=== PATIENT | female | born 2000 | race Caucasian/White ===

== ENCOUNTER → 2020-12-14 16:06 | Outpatient (BNVA) | payer SELFPAY | PROVIDERS: PCP Nurse Practitioner Family; Visit Provider Nurse Practitioner Family | DX: M25.532 Pain in left wrist (principal); M25.432 Effusion, left wrist | CPT/HCPCS: 73110 ==

== ENCOUNTER → 2024-10-28 13:39 | Outpatient (BNVA) | payer MEDICAID, SELFPAY | PROVIDERS: PCP Nurse Practitioner Family; Visit Provider Emergency Medicine | DX: R07.9 Chest pain, unspecified (principal); R05.9 Cough, unspecified | CPT/HCPCS: 71046 ==

== ENCOUNTER 2024-10-28 14:04 | Inpatient (IN) | payer MEDICAID, SELFPAY ==
[2024-10-28] VITALS (9 sets, daily range): BP systolic 110–133; BP diastolic 63–87; PULSE 71–113; RESP 17–20; TEMP 36.6–37.6; O2SAT 95–100; BMI 16.2; BMI 19.6
--- NOTE | 2024-10-28 14:07 | W.ED.SOB ---
HPI - SOB/Dyspnea General: Chief Complaint: Shortness of Breath/Dyspnea Stated Complaint: sob, sent from walk in [facility] lung Time Seen by Provider: 10/28/24 14:06 History of Present Illness: HPI Narrative: 24-year-old female presents emergency room from urgent care clinic she had an abnormal chest x-ray there was a concern that she had a pneumothorax. Patient states for about the last 3 weeks she has had increasing shortness of breath mild nonproductive cough. She is subjectively had a little low-grade fever. She denies any hemoptysis no history of any PE no history of any chronic respiratory illness no history of any previous spontaneous pneumothorax. Patient does not smoke or vape. Associated symptoms: Reports chest congestion and fever(s) (Subjective); Deny abdominal pain or chest pain Related Data Home Medications ?Medication ?Instructions ?Recorded ?Confirmed ibuprofen 200 mg tablet 600 mg PO Q6H PRN fever or pain 03/13/20 10/28/24 Previous Rx's ?Medication ?Instructions ?Recorded ondansetron 4 mg disintegrating 4 mg PO Q8H PRN nausea and 02/01/24 tablet vomiting #10 tabs Allergies Allergy/AdvReac Type Severity Reaction Status Date / Time No Known Allergies Allergy Verified 10/28/24 13:12 Review of Systems Const: Reports: fever(s) (Subjective); Denies: chills Card: Denies: chest pain Resp: Reports: dyspnea, productive cough, wheezing and chest congestion GI: Denies: abdominal pain : Denies: dysuria, urinary frequency or urinary urgency Musc: Denies: neck pain or back pain Skin/Breast: Denies: rash PFSH ED PFSH: Social History Smoking and tobacco/nicotine status: never used tobacco/nicotine Second hand smoke exposure: No Alcohol intake: never Substance/Drug Use: never Lives independently: Yes Household members: none Housing: House Marital status: Single Physical Exam Const: GENERAL APPEARANCE: cooperative ORIENTATION/CONSCIOUSNESS: Yes awake, Yes oriented to person, Yes oriented to place and Yes oriented to time HENMT: COMMON NORMALS: normocephalic, atraumatic and hearing grossly normal bilaterally HEAD & SCALP: normocephalic and atraumatic Resp: OTHER: Diminished breath sounds in the right lower lobe with egophony. Upper lobe sounds clear dullness to percussion. No subcutaneous emphysema. Cardio: COMMON NORMALS: regular rate, regular rhythm and No murmurs present (Cardio) RATE: regular rate RHYTHM: regular rhythm GI: COMMON NORMALS: Soft to palpation and No hepatosplenomegaly present AUSCULTATION: Yes normoactive bowel sounds PALPATION: Yes Soft to palpation, No Tenderness to palpation present (GI), No Guarding due to palpation present (GI) and Yes No hepatosplenomegaly present Extremity: COMMON NORMALS: normal to inspection, capillary refill normal, no clubbing, cyanosis or edema, no calf tenderness and no pedal edema Neuro: SENSORIUM/ORIENTATION: Yes oriented to person, Yes oriented to place and Yes oriented to time Skin: COMMON NORMALS: no rashes or lesions noted GENERAL SKIN EXAM: no rashes or lesions noted Course Vital Signs: Vital signs: Vital Signs Temperature 97.8 F 10/28/24 14:08 Pulse Rate 96 10/28/24 16:31 Respiratory Rate 18 10/28/24 14:28 Blood Pressure 133/78 10/28/24 16:31 Pulse Oximetry 99 10/28/24 16:31 Oxygen Delivery Me thod Room Air 10/28/24 16:31 MDM - SOB/Dyspnea Medical Decision Making Multilobar pneumonia with a small right pleural effusion. There is pretty significant right lower lobe pneumonia nearly completely consolidated there is no evidence of mucous plugging encouraging the radiologist that I spoke to about the case. No pulmonary emboli. Given the multilobar pneumonia extensive disease recommend observation started on ceftriaxone and Zithromax per the hospitalist orders have been written have discussed Dr. Keenan. Medical Records I reviewed the patient's medical records. Lab Data I reviewed the patient's lab results. 10/28/24 14:10 10/28/24 14:10 Labs/Radiology: Radiology Impressions Chest X-Ray 10/28/24 14:08 IMPRESSION: Near complete opacification of the right lower hemithorax with opacities in the right middle and lower lobes compatible with pneumonia again demonstrated. Mild right pleural fluid. Recommend follow-up evaluation following treatment to assess for resolution. Chest CTA 10/28/24 14:23 IMPRESSION: 1. Bilateral pulmonary opacities as detailed above, most extensive in the right middle and lower lobes and at the left lung base compatible with pneumonia and atelectasis. 2. Moderate right pleural effusion. 3. Mild right hilar adenopathy, likely reactive. 4. No acute pulmonary emboli. 5. Recommend follow-up evaluation following treatment to assess for resolution. ADDENDUM: 10/28/24 4651 THIS REPORT CONTAINS FINDINGS THAT MAY BE CRITICAL TO PATIENT CARE. The findings were verbally communicated via telephone conference at 4:05 PM CDT on 10/28/2024 with TIMOTHY BOWMAN. The findings were acknowledged and understood. Laboratory Results WBC 10.52 10^3/uL (3.29-11.43) 10/28/24 14:10 RBC 4.27 10^6/uL (3.85-5.65) 10/28/24 14:10 Hgb 12.40 g/dL (11.27-16.99) 10/28/24 14:10 Hct 38.4 % (36-47) 10/28/24 14:10 MCV 89.9 fl (85-98) 10/28/24 14:10 MCH 29.0 pg (27-33) 10/28/24 14:10 MCHC 32.3 g/dL (30-55) 10/28/24 14:10 RDW 13.2 % (12.1-15.1) 10/28/24 14:10 Plt Count 599 10^3/cmm (157-399) H 10/28/24 14:10 MPV 8.4 fL (7.4-10.4) 10/28/24 14:10 Neut % (Auto) 77.6 % 10/28/24 14:10 Lymph % (Auto) 13.4 % 10/28/24 14:10 [place] % (Auto) 6.8 % 10/28/24 14:10 Eos % (Auto) 0.9 % 10/28/24 14:10 Baso % (Auto) 0.7 % 10/28/24 14:10 Neut # (Auto) 8.17 10^3/uL (1.8-7.7) H 10/28/24 14:10 Lymph # (Auto) 1.4 10^3/uL (0.8-4.8) 10/28/24 14:10 [place] # (Auto) 0.7 10^3/uL (0.2-0.9) 10/28/24 14:10 Eos # (Auto) 0.1 10^3/uL (0.0-0.8) 10/28/24 14:10 Baso # (Auto) 0.1 10^3/uL (0.0-0.1) 10/28/24 14:10 Nucleated RBC % (auto) 0 % 10/28/24 14:10 Nucleated RBCs # 0.0 /100WBC 10/28/24 14:10 Sodium 140 mmol/L (136-145) 10/28/24 14:10 Potassium 4.1 mmol/L (3.5-5.1) 10/28/24 14:10 Chloride 101 mmol/L (98-107) 10/28/24 14:10 Carbon Dioxide 29 mmol/L (22-29) 10/28/24 14:10 Anion Gap 14.1 (5-19) 10/28/24 14:10 BUN 9 mg/dL (6-20) 10/28/24 14:10 Creatinine 0.5 mg/dL (0.5-0.9) 10/28/24 14:10 GFR Calculation 149.1 mL/min (90-130) H 10/28/24 14:10 Glucose 90 mg/dL (65-115) 10/28/24 14:10 Calculated Osmolality 288 mOsm/kg (285-295) 10/28/24 14:10 Lactic Acid 0.7 mmol/L (0.5-2.2) 10/28/24 14:10 Calcium 10.1 mg/dL (8.5-10.5) 10/28/24 14:10 Total Bilirubin 0.2 mg/dL (0.15-1.2) 10/28/24 14:10 AST 16 U/L (0-32) 10/28/24 14:10 ALT 20 U/L (0-33) 10/28/24 14:10 Alkaline Phosphatase 78 U/L (35-105) 10/28/24 14:10 Total Protein 7.9 g/dL (6.6-8.7) 10/28/24 14:10 Albumin 4.0 g/dL (3.5-5.2) 10/28/24 14:10 Globulin 3.9 g/dL (1.3-4.6) 10/28/24 14:10 Urine Color Yellow (Yellow) 10/28/24 15:47 Urine Appearance Clear (CLEAR) 10/28/24 15:47 Urine pH 7.0 (5-7) 10/28/24 15:47 Ur Specific [place] 1.027 (1.005-1.030) 10/28/24 15:47 Urine Protein Negative (Negative) 10/28/24 15:47 Urine Glucose (UA) Negative (Normal) 10/28/24 15:47 Urine Ketones Negative (Negative) 10/28/24 15:47 Urine Blood Negative (Negative) 10/28/24 15:47 Urine Nitrate Negative (Negative) 10/28/24 15:47 Urine Bilirubin Negative (Negative) 10/28/24 15:47 Urine Urobilinogen 0.2 mg/dL (Negative) 10/28/24 15:47 Ur Leukocyte Esterase Negative (Negative) 10/28/24 15:47 Urine RBC 0-2 /hpf (0-2) 10/28/24 15:47 Urine WBC 0-5 /hpf (0-5) 10/28/24 15:47 Ur Squamous Epith Cells 0-5 /hpf (0-5) 10/28/24 15:47 Amorphous Sediment Not Reportable 10/28/24 15:47 Urine Bacteria None seen /hpf (NONE) 10/28/24 15:47 Hyaline Casts 0-4 /lpf H 10/28/24 15:47 Influenza A (PCR) Negative (Negative) 10/28/24 14:45 Influenza Type B (PCR) Negative (Negative) 10/28/24 14:45 RSV (PCR) Negative (Negative) 10/28/24 14:45 SARS-CoV-2 (PCR) Negative (Negative) 10/28/24 14:45 All radiology interpretation(s) finalized by discharge Discharge Plan Discharge Patient Disposition: Placed in Observation Clinical Impression: Community acquired pneumonia Condition: Stable Prescriptions: No Action ibuprofen 200 mg tablet 600 mg PO Q6H PRN (Reason: fever or pain) ondansetron 4 mg tablet,disintegrating 4 mg PO Q8H PRN (Reason: nausea and vomiting) Qty: 10 0RF Referrals: Keshia Florez FNP-C [Primary Care Provider] - Print Language: Singaporean Coding Level of Care Code ED Child Care Education Coordinator for g Micky
--- NOTE | 2024-10-28 14:08 | XRR_ITS ---
PROCEDURE INFORMATION: Exam: XR Chest Exam date and time: 10/28/2024 2:14 PM Age: 24 years old Clinical indication: Cough and dyspnea; Additional info: Dyspnea/cough TECHNIQUE: Imaging protocol: Radiologic exam of the chest. Views: 1 view. COMPARISON: CR XR chest 2V* [id number] 10/28/2024 1:42 PM FINDINGS: Lungs: Near complete opacification of the right lower hemithorax with opacities in the right middle and lower lobes, not significantly changed. Left lung is clear. Pleural spaces: Mild pleural fluid on the right. No pneumothorax. Heart/Mediastinum: Cardiomediastinal silhouette is normal. Bones/joints: No acute abnormality. XR/XR chest 1V portable [id number] IMPRESSION: Near complete opacification of the right lower hemithorax with opacities in the right middle and lower lobes compatible with pneumonia again demonstrated. Mild right pleural fluid. Recommend follow-up evaluation following treatment to assess for resolution.
--- NOTE | 2024-10-28 14:12 | ECG_ITS ---
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
[2024-10-28 14:21] LABS: Basophils # 0.1 10^3/uL (0.0-0.1); Basophils % 0.7 %; Eosinophils # 0.1 10^3/uL (0.0-0.8); Eosinophils % 0.9 %; Hematocrit 38.4 % (36-47); Lymphocytes # 1.4 10^3/uL (0.8-4.8); Lymphocytes % 13.4 %; Mean Corpuscular HGB Conc 32.3 g/dL (30-55); Mean Corpuscular Volume 89.9 fl (85-98); Mean Platelet Volume 8.4 fL (7.4-10.4); Monocytes # 0.7 10^3/uL (0.2-0.9); Monocytes % 6.8 %; Neutrophils # 8.17 10^3/uL (1.8-7.7); Neutrophils % 77.6 %; Nucleated Red Blood Cells % 0 %; Platelet Count 599 10^3/cmm (157-399); Red Blood Count 4.27 10^6/uL (3.85-5.65); Red Cell Distribution Width 13.2 % (12.1-15.1); White Blood Count 10.52 10^3/uL (3.29-11.43)
--- NOTE | 2024-10-28 14:23 | CTR_ITS ---
PROCEDURE INFORMATION: Exam: CTA Chest With Contrast Exam date and time: 10/28/2024 3:02 PM Age: 24 years old Clinical indication: Pain; Cough and shortness of breath; Chest pressure; Additional info: Abnormal chest x-ray, consolidated right lower lobe pneumoni TECHNIQUE: Imaging protocol: Computed tomographic angiography of the chest with contrast. Exam focused on the arteries. 3D rendering (Not supervised by radiologist): MIP and/or 3D reconstructed images were created by the technologist. Radiation optimization: All CT scans at this facility use at least one of these dose optimization techniques: automated exposure control; mA and/or kV adjustment per patient size (includes targeted exams where dose is matched to clinical indication); or iterative reconstruction. Contrast material: OMNI 350; Contrast volume: 69 ml; Contrast route: INTRAVENOUS (IV); COMPARISON: CR XR chest 1V portable [id number] 10/28/2024 2:14 PM RADIATION DOSE METRICS: Total DLP (mGy-cm): 152.32 FINDINGS: Pulmonary arteries: No pulmonary artery embolism identified. Main pulmonary artery is normal caliber. Aorta: No aortic aneurysm. No aortic dissection or evidence of acute aortic abnormality. Lungs: Airspace consolidation and areas of ground-glass opacity in the right lower lobe. There is also RLL compressive and dependent atelectasis. Opacification of the right middle lobe with volume loss. Scattered areas of ground-glass opacity in the left upper lobe and lingula. Scattered areas of ground-glass opacity in the left lower lobe with patchy airspace opacities predominantly at the left lung base. Some of the opacities are somewhat nodular with no definite cavitation. Pleural spaces: Moderate right pleural effusion. No pneumothorax. Heart: Heart size is normal. No pericardial effusion. Lymph nodes: Few upper normal mediastinal lymph nodes and mildly enlarged right hilar lymph node measuring 1.4 cm in short axis dimension. Bones/joints: No acute osseous abnormality or suspicious osseous lesion. Manubriosternal joint sclerosis and endplate changes. Soft tissues: Unremarkable. Other findings: No acute abnormality in the included upper abdomen. CT/CT angio chest PE protcl [id number] IMPRESSION: 1. Bilateral pulmonary opacities as detailed above, most extensive in the right middle and lower lobes and at the left lung base compatible with pneumonia and atelectasis. 2. Moderate right pleural effusion. 3. Mild right hilar adenopathy, likely reactive. 4. No acute pulmonary emboli. 5. Recommend follow-up evaluation following treatment to assess for resolution.
[2024-10-28 14:38] LABS: Alanine Aminotransferase 20 U/L (0-33); Alkaline Phosphatase 78 U/L (35-105); Anion Gap 14.1 (5-19); Aspartate Amino Transferase 16 U/L (0-32); Blood Urea Nitrogen 9 mg/dL (6-20); Calcium 10.1 mg/dL (8.5-10.5); Carbon Dioxide 29 mmol/L (22-29); Chloride 101 mmol/L (98-107); Creatinine Clr Calc Pharmacy 126.9767; Globulin 3.9 g/dL (1.3-4.6); Glomerular Filtration Rate 149.1 mL/min (90-130); Glucose 90 mg/dL (65-115); Osmolality Calculated 288 mOsm/kg (285-295); Potassium 4.1 mmol/L (3.5-5.1); Sodium 140 mmol/L (136-145); Total Bilirubin 0.2 mg/dL (0.15-1.2); Total Protein 7.9 g/dL (6.6-8.7)
[2024-10-28 14:39] LABS: Lactic Sepsis W/Reflex 0.7 mmol/L (0.5-2.2)
[2024-10-28] MEDS: iohexol 350 mg/mL 500 mL Btl (per mL) IV (15:07)
[2024-10-28 15:41] LABS: Influenza A NEGATIVE (Negative); Influenza B NEGATIVE (Negative); Respiratory Syncytial Virus Ce NEGATIVE (Negative); SARS-CoV-2 PCR NEGATIVE (Negative)
[2024-10-28 15:54] LABS: Bilirubin Urine Negative (Negative); Blood Urine Negative (Negative); Glucose Urine UA Negative (Normal); Ketones Urine Negative (Negative); Leukocyte Esterase Urine Negative (Negative); Nitrate Urine Negative (Negative); Protein Urine Negative (Negative); Specific Gravity, Urine 1.027 (1.005-1.030); Urine Appearance Clear (CLEAR); Urine Color Yellow (Yellow); Urobilinogen Urine 0.2 mg/dL (Negative)
[2024-10-28 15:56] LABS: Add Urine Microscopic? YES; Bacteria Urine None Seen /hpf; Hyaline Casts Urine 0-4 /lpf; RBC Urine 0-2 /hpf (0-2); Squamous Epithelial Cell Urine 0-5 /hpf (0-5); WBC Urine 0-5 /hpf (0-5)
--- NOTE | 2024-10-28 17:11 | US_ITS ---
WS: [id number] Ultrasound chest, bilateral. HISTORY: Evaluate for pleural effusion. COMPARISON: Chest CT 10/28/2024. Small to moderate RIGHT pleural effusion. There is a small amount of atelectatic lung within the effusion. No significant LEFT pleural effusion identified by ultrasound. US/US chest [id number] IMPRESSION: Small to moderate RIGHT pleural effusion.
--- NOTE | 2024-10-28 17:13 | USCV_ITS ---
Leanna Carter Age: 24 Gender: F : 2000 Exam Date: 10/28/2024 17:33 Ordering Phys: Lito Keenan MD Technologist: DANNY [place] [facility] [place]: SOB BP: 115 / 65 HR: 82 Rhythm: Sinus Technical Quality: Adequate MEASUREMENTS (Male / Female) Normal Values 2D ECHO LV Diastolic Diameter PLAX 4.0 cm 4.2 - 5.9 / 3.9 - 5.3 cm IVS Diastolic Thickness 0.9 cm 0.6 - 1.0 / 0.6 - 0.9 cm IVS Systolic Thickness 1.0 cm LVPW Diastolic Thickness 0.8 cm 0.6 - 1.0 / 0.6 - 0.9 cm LVPW Systolic Thickness 1.8 cm LVOT Diameter 1.9 cm LV Ejection Fraction 2D Teich 67.6 % LV Ejection Fraction MOD 4C 74.7 % LV Ejection Fraction MOD 2C 53.3 % LV Ejection Fraction 2C AL 51.1 % LA Diameter 3.0 cm RA Systolic Volume 4C AL 16.1 ml RA Systolic Volume 4C MOD 15.8 ml LA Sys Volume AL 19.2 cm cubed LA Sys Volume Index AL 13.4 cm cubed/m squared Aorta at Sinotubular Diameter 1.9 cm IVC Diameter 1.4 cm M-MODE LA Ao Ratio MM 1.4 AV Cusp Separation MM 1.4 cm DOPPLER AV Peak Velocity 148.0 cm/s LVOT Peak Velocity 121.0 cm/s AV Area Cont Eq vti 2.8 cm squared AV Area Cont Eq pk 2.4 cm squared MV Peak Velocity 147.0 cm/s MV Area PHT 5.7 cm squared Mitral E to A Ratio 1.6 TR Peak Velocity 114.0 cm/s TR Peak Gradient 5.2 mmHg TV Peak E Velocity 98.0 cm/s PV Peak Velocity 127.0 cm/s FINDINGS Left Ventricle Normal left ventricular size, systolic function and wall thickness, with no regional wall motion abnormalities. Left ventricular ejection fraction is estimated at 60 %. Normal diastolic function. Right Ventricle The right ventricle is normal in size and function. Right Atrium The right atrium is normal in size. Left Atrium The left atrium is normal in size. Mitral Valve Structurally normal mitral valve without significant stenosis or prolapse. There is no mitral regurgitation. Aortic Valve Structurally normal aortic valve without significant sclerosis or stenosis. There is no aortic regurgitation. Tricuspid Valve Structurally normal tricuspid valve without significant stenosis or regurgitation. Pulmonary artery systolic pressure is normal. Pulmonic Valve Structurally normal pulmonic valve without significant stenosis. There is no pulmonic regurgitation. Pericardium Normal pericardium without effusion. Aorta Normal ascending aorta dimension. IVC The inferior vena cava appears normal. CONCLUSIONS Normal left ventricular size, systolic function and wall thickness, with no regional wall motion abnormalities. Left ventricular ejection fraction is estimated at 60 %. Normal diastolic function. There is no pericardial effusion. No significant valve abnormalities. Right atrial pressure is around 5 mm of mercury. Sergio Chow MD (Electronically Signed) Final Date: 29 October 2024 17:57 S
--- NOTE | 2024-10-28 17:15 | P.HP_ITS ---
Providers/Chief Complaint 2 Primary Care Provider: Keshia Florez, ROSELIA Chief Complaint: sob, sent from walk in [facility] lung History of Present Illness Leanna Carter is a 24 year old female with no significant past medical history, who presents to [facility] due to cough, shortness of breath, pleurisy. Currently patient is alert and oriented x 3, following all commands, on room air, normotensive, she does complain of a nonproductive cough, shortness of breath, pleurisy especially with coughing, anterior chest discomfort that worsens when sitting up and leaning forward. According to patient back in mid September, her normal family were sick, they thought it was a viral illness, had a cough, congestion, but her symptomatology persisted. She tells me that her brother is still sick, her sister is also sick, her mother was diagnosed with bronchitis. Her father also tells me that he was also sick, but he has gotten better. But she continued to have cough, congestion, which persisted for the last month, which is progressed to shortness of breath, pleurisy, anterior chest discomfort, worse with bending forward. She thinks maybe 1 time she had an episode of hemoptysis but it was only slightly blood- tinged. 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, she works with animals, chickens/goats/cows, no travel outside the [facility], she was born in [place], father thinks that she has missed some of her vaccinations, denies any headache, blurry vision, no neck pain no, no new rashes, denies being , no abdominal pain, no lightheadedness, no dizziness, she does report subjective fevers, does report lymphadenopathy of her neck, does report sore throat, denies smoking, no vaping, no known exposures Review of Systems 2 Const: Reports: fever(s), fatigue and malaise Card: Reports: chest pain Resp: Reports: dyspnea and non-productive cough GI: Denies: abdominal pain : Denies: flank pain Musc: Denies: neck pain or back pain Neuro: Denies: headache(s) Endo: Denies: polyuria Tony/Lymph: Reports: tender lymph nodes; Denies: easy bruising Medications/Allergies Home Medications ?Medication ?Instructions ?Recorded ?Confirmed ?Last Taken ?Type ibuprofen 200 mg tablet 600 mg PO Q6H PRN fever or p ain 03/13/20 10/28/24 10/28/24 History ondansetron 4 mg disintegrating 4 mg PO Q8H PRN nausea and 02/01/24 10/28/24 Unknown Rx tablet vomiting #10 tabs Allergies Allergy/AdvReac Type Severity Reaction Status Date / Time No Known Allergies Allergy Verified 10/28/24 13:12 PFSH Acute 2 PFSH: Medical History No pertinent past medical history Surgical History No pertinent past surgical history Social History Smoking and tobacco/nicotine status: never used tobacco/nicotine Second hand smoke exposure: No Alcohol intake: never Substance/Drug Use: never Lives independently: Yes Household members: none Housing: House Marital status: Single Vitals/I&O/Wt Last Vital Signs Temp 97.8 F 10/28/24 14:08 Pulse 96 10/28/24 16:31 Resp 18 10/28/24 14:28 BP 133/78 10/28/24 16:31 Pulse Ox 99 10/28/24 16:31 O2 Del Method Room Air 10/28/24 16:31 Weight last 48 hrs Weight 47.174 kg Physical Exam 2 Const: COMMON NORMALS: no acute distress and patient oriented x3 HENMT: COMMON NORMALS: normocephalic HEAD & SCALP: normocephalic Eye: COMMON NORMALS: Equal, round and reactive pupils present Neck/C-Spine: COMMON NORMALS: no JVD OTHER: Does have bilateral cervical lymphadenopathy anterior cervical neck chain, Lymph: LYMPHATIC: lymphadenopathy Resp: COMMON NORMALS: normal respiratory effort, No retractions, No use of accessory muscles and clear to auscultation bilaterally OTHER: Decreased air movement right lower lobe, does have wheezing in the lung bustos Cardio: COMMON NORMALS: no JVD, regular rate, regular rhythm, S1 normal heart sound present and S2 normal heart sound present RATE: regular rate RHYTHM: regular rhythm HEART SOUNDS: S1 normal heart sound present and S2 normal heart sound present GI: COMMON NORMALS: Normal to inspection, nondistended, normoactive bowel sounds present, Soft to palpation, non-tender, No hepatosplenomegaly present, no masses and no bruits PALPATION: Yes Soft to palpation and Yes No hepatosplenomegaly present Extremity: COMMON NORMALS: no calf tenderness and no pedal edema Neuro: COMMON NORMALS: patient oriented x3, CN's II-XII intact bilaterally and moves all extremities Psych: COMMON NORMALS: mental status grossly normal Data 10/28/24 14:10 10/28/24 14:10 Micro: Microbiology 10/28/24 14:57 Blood Culture - Preliminary Blood SPECIMEN COLLECTED 10/28/24 14:50 Blood Culture - Preliminary Blood SPECIMEN COLLECTED A&P Assessment and plan (1) Atypical pneumonia: (2) Pleural effusion, right: Plan FINDINGS: Pulmonary arteries: No pulmonary artery embolism identified. Main pulmonary artery is normal caliber. Aorta: No aortic aneurysm. No aortic dissection or evidence of acute aortic abnormality. Lungs: Airspace consolidation and areas of ground-glass opacity in the right lower lobe. There is also RLL compressive and dependent atelectasis. Opacification of the right middle lobe with volume loss. Scattered areas of ground-glass opacity in the left upper lobe and lingula. Scattered areas of ground-glass opacity in the left lower lobe with patchy airspace opacities predominantly at the left lung base. Some of the opacities are somewhat nodular with no definite cavitation. Pleural spaces: Moderate right pleural effusion. No pneumothorax. Heart: Heart size is normal. No pericardial effusion. Lymph nodes: Few upper normal mediastinal lymph nodes and mildly enlarged right hilar lymph node measuring 1.4 cm in short axis dimension. Bones/joints: No acute osseous abnormality or suspicious osseous lesion. Manubriosternal joint sclerosis and endplate changes. Soft tissues: Unremarkable. Other findings: No acute abnormality in the included upper abdomen. -Did report 1 episode of hemoptysis, -She does live on a farm -Rest of the family numbers were also sick -Does have cervical lymphadenopathy -Symptoms have been present for the last month -Subjective fevers Plan -Broad-spectrum workup -CRP, Pro-Neri, sed rate, fungal studies, LDH, AFB, QuantiFERON -With lymphadenopathy, ordered lymphoma, leukemia panel -Right pleural effusion ultrasound chest to assess for parapneumonic effusion versus empyema, patient might require thoracentesis -Cardiac echo -Blood cultures, sputum cultures -Rocephin -Azithromycin -Full code -hCG -Lovenox for DVT prophylaxis PDMP PDMP Reviewed: Not Reviewed Attestations 2 Medical Necessity Statement*: Patient requires hospitalization for atypical pneumonia, inpatient, greater than 2 midnights Diagnoses Atypical pneumonia J18.9 Pleural effusion, right J90
--- NOTE | 2024-10-28 17:24 | ECG_ITS ---
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
[2024-10-28 17:27] LABS: Erythrocyte Sedimentation Rate 22 mm/hr (0-15)
[2024-10-28 17:45] LABS: Procalcitonin 0.07 ng/mL (0-0.5); Thyroid Stimulating Hormone 2.48 uIU/mL (0.27-4.20)
[2024-10-28 17:56] LABS: Lactate Dehydrogenase 147 U/L (135-214)
[2024-10-28 18:20] LABS: LAB Peripheral Smear Sent for Review
[2024-10-28 18:35] LABS: Troponin(5th) Baseline < 6 ng/L (0-10)
[2024-10-28] MEDS: cefTRIAXone 1,000 mg SDV 1000 MG IVP (18:36)
[2024-10-28] MEDS: AZITHROMYCIN ADD-Vantage 500 MG in 0.9% NaCl ADD-Vantage 250 ML 250 MG IV (18:36)
--- NOTE | 2024-10-28 18:40 | ECG_ITS ---
[facility] [place] [place] [facility] Date: 2024-10-28 Pat Name: Leanna Carter Department: Room: 267 Gender: Female Enterprise Resource Planning Consultant: : 2000 Requested By: Lito Keenan Order Number: [id number] Reading MD: BRI STEELE Measurements Intervals [place] Rate: 86 P: 24 OK: 125 QRS: -62 QRSD: 86 T: 22 QT: 312 QTc: 375 Interpretive Statements SINUS RHYTHM WITH OCCASIONAL VENTRICULAR PREMATURE COMPLEXES LEFT ANTERIOR FASCICULAR BLOCK [QRS AXIS <= -45, QR IN I, RS IN II] NONSPECIFIC T-WAVE ABNORMALITY Compared to ECG 10/28/2024 17:24:45 Ventricular premature complex(es) now present Left anterior fascicular block now present T-wave abnormality now present Left-axis deviation no longer present Electronically Signed On 10-28-2024 22:18:07 CDT by BRI STEELE [email or web address]
[2024-10-28] MEDS: sodium chloride 0.9% 1,000 ML 50 ML IV (18:44)
[2024-10-28 18:45] LABS: HCG, Serum Qual Negative (Negative)
[2024-10-28 18:49] LABS: Amphetamines Screen Urine Negative (Negative); Barbiturates Screen Urine Negative (Negative); Benzodiazepines Screen Urine Negative (Negative); Cocaine Screen Urine Negative (Negative); Opiate Screen Urine Negative (Negative); PCP Screen Urine Negative (Negative); THC Screen Urine Negative (Negative)
[2024-10-28 20:12] LABS: Estmated Average Glucose 108; Hemoglobin A1C 5.4 % (4.0-6.0)
[2024-10-28 21:39] LABS: Troponin 5 2HR Delta 0.00001 ABS# (0-10)
[2024-10-28] MEDS: ketorolac 30 mg/mL INJ 15 MG IVP (21:54)
[2024-10-28] MEDS: acetaminophen-codeine 300-30mg Tablet 1 TAB PO (22:43)
--- NOTE | 2024-10-28 23:00 | ECG_ITS ---
[facility]: 2024-10[facility]29 Pat Name: Leanna Carter Department: Room: 267 Gender: Female Cosmetic Sales Assistant: : 2000 Requested By: Lito Keenan Order Number: [id number] Reading MD: BRI STEELE Measurements Intervals [place] Rate: 82 P: 13 [place]: 130 QRS: 123 QRSD: 100 T: 34 QT: 348 QTc: 409 Interpretive Statements SINUS RHYTHM LEFT POSTERIOR FASCICULAR BLOCK [QRS AXIS > 109, INFERIOR Q] Compared to ECG 10/28/2024 18:40:54 Left posterior fascicular block now present Ventricular premature complex(es) no longer present Left anterior fascicular block no longer present T-wave abnormality no longer present Electronically Signed On 11-04-2024 18:28:08 CDT by BRI STEELE [email or web address]
[2024-10-28] MEDS: albuterol 2.5 mg/3 mL Neb INHALATION (23:36)
[2024-10-29] VITALS (15 sets, daily range): BP systolic 99–124; BP diastolic 55–69; PULSE 72–115; RESP 16–22; TEMP 36.5–37.2; O2SAT 92–99
[2024-10-29 00:33] LABS: Troponin 5 6HR Delta 0 ng/L (0-12)
[2024-10-29] MEDS: albuterol 2.5 mg/3 mL Neb INHALATION ×4 (04:08→22:30)
[2024-10-29] MEDS: enoxaparin 40 mg/0.4 mL Syringe SUBCUT (05:20)
[2024-10-29] MEDS: acetaminophen 325 mg Tablet 650 MG PO ×3 (05:23→19:07)
[2024-10-29 05:31] LABS: Basophils # 0.1 10^3/uL (0.0-0.1); Basophils % 0.9 %; Eosinophils # 0.1 10^3/uL (0.0-0.8); Eosinophils % 0.8 %; Hematocrit 34.6 % (36-47); Lymphocytes % 20.9 %; Mean Corpuscular HGB Conc 32.1 g/dL (30-55); Mean Corpuscular Hemoglobin 29.2 pg (27-33); Mean Corpuscular Volume 91.1 fl (85-98); Monocytes # 0.7 10^3/uL (0.2-0.9); Monocytes % 7.5 %; Neutrophils # 6.64 10^3/uL (1.8-7.7); Neutrophils % 69.4 %; Nucleated Red Blood Cells % 0 %; Platelet Count 532 10^3/cmm (157-399); Red Cell Distribution Width 13.4 % (12.1-15.1); White Blood Count 9.58 10^3/uL (3.29-11.43)
[2024-10-29 06:48] LABS: Anion Gap 13.8 (5-19); Blood Urea Nitrogen 8 mg/dL (6-20); Calcium 8.6 mg/dL (8.5-10.5); Carbon Dioxide 24 mmol/L (22-29); Chloride 102 mmol/L (98-107); Creatinine Clr Calc Pharmacy 160.2282; Glomerular Filtration Rate 192.9 mL/min (90-130); Glucose 112 mg/dL (65-115); Osmolality Calculated 281 mOsm/kg (285-295); Potassium 3.8 mmol/L (3.5-5.1); Sodium 136 mmol/L (136-145)
--- NOTE | 2024-10-29 09:25 | PC.CHAP ---
Pastoral Care Encounter/Spiritual Assessment Type of Contact [] Declined research manufacturing operator visit [] Patient/Family/Request visit [] Outpatient visit [] Follow-up visit [] Physician referral [] Code/Alert [] Routine visit [] Staff referral [] Actively dying [] Patient sleeping [] Family support [] [] Out of room [] Palliative care [] [] Receiving care in room [] Pre-surgical visit [] Trauma [] Long length of stay [] ICU visit [x] Other:Contact precautions. No visit. Relational/Emotional Strength [] Patient feels connected with others/family/visitors/staff [] Distress [] Loneliness/isolation [] Abandonment Spirituality of Patient [] Person of Winnie [] Attends Roman Catholic of their Winnie [] Believes in Prayer [] Reads Bible or Temple materials [] There are Spiritual issues to be addressed Dog Breeder Interventions [] Prayer [] Active listening [] Non-anxious presence [] Spiritual/emotional support [] Crisis/trauma care [] Spiritual counseling [] Bereavement support [] Provided bereavement packet [] Provided Bible/devotional materials [] Provided toy/stuffed animal, coloring book to patient or family member [] Provided Communion [] Anointing/[place] [] Salvation [] Completed spiritual assessment [] Other: Impact on Illness or Injury [] Angry [] Fearful [] Anxious [] Often cries [] Exhaustion [] Unable to work [] Unable to attend pentecostal [] Unable to walk/stand [] Unable to read [] Unable to drive [] Unable to eat/drink [] Unable to sleep [] Unable to be with family [] Patient intubated [] Other: Summary Time spent with patient
[2024-10-29] MEDS: ketorolac 30 mg/mL INJ 15 MG IVP (10:29)
[2024-10-29] MEDS: sodium chloride 0.9% 1,000 ML 50 ML IV (12:38)
--- NOTE | 2024-10-29 13:55 | P.PN_ITS ---
Subjective 2 Subjective: She is coughing. Minimal sputum production. She does note cough worsening some with drinking water. Denies any history of aspiration in the past. Denies any vomiting. Denies any other systemic symptoms. Does have pleuritic pain on deep breath and cough. Particularly in the right lower chest. Discussion with her and her father, she has not had had any travel. Has been born [place] in the area. Has not been exposed to people with known infectious disease, tuberculosis. [place] animals around. Vitals/I&O/Wt Last Vital Signs Temp 97.7 F 10/29/24 11:33 Pulse 91 10/29/24 12:20 Resp 20 H 10/29/24 12:05 BP 99/55 10/29/24 11:33 Pulse Ox 99 10/29/24 12:05 O2 Del Method Room Air 10/29/24 12:05 10/28/24 10/29/24 10/29/24 22:59 06:59 14:59 Intake Total 370 / 370 300 / 670 1855 / 1855 Balance 370 / 370 300 / 670 1855 / 1855 Weight last 48 hrs Weight 47.355 kg Weight 47.174 kg Weight 47.174 kg Physical Exam 2 Narrative: Sitting up in bed. Accompanied by her father. Const: COMMON NORMALS: patient oriented x3 and alert GENERAL APPEARANCE: c ooperative ORIENTATION/CONSCIOUSNESS: Yes awake HENMT: COMMON NORMALS: oropharynx normal Neck/C-Spine: COMMON NORMALS: no JVD Resp: COMMON NORMALS: normal respiratory effort AUSCULTATION: diminished lung sounds on the right in the lower lung bustos Cardio: COMMON NORMALS: no JVD, regular rhythm, S1 normal heart sound present, S2 normal heart sound present and No murmurs present (Cardio) RHYTHM: regular rhythm HEART SOUNDS: S1 normal heart sound present and S2 normal heart sound present GI: COMMON NORMALS: Normal to inspection, nondistended, normoactive bowel sounds present, Soft to palpation and non-tender PALPATION: Yes Soft to palpation Extremity: COMMON NORMALS: no joint enlargement and no pedal edema Neuro: COMMON NORMALS: patient oriented x3 and moves all extremities S ENSORIUM/ORIENTATION: Yes alert Skin: COMMON NORMALS: no rashes or lesions noted GENERAL SKIN EXAM: no rashes or lesions noted Data 10/29/24 04:35 10/29/24 06:17 Micro: Microbiology 10/28/24 15:47 Bacterial Antigens - Final Urine,Voided 10/28/24 14:57 Blood Culture - Preliminary Blood SPECIMEN COLLECTED 10/28/24 14:50 Blood Culture - Preliminary Blood SPECIMEN COLLECTED A&P Assessment and plan (1) Atypical pneumonia: (2) Pleural effusion, right: Plan Possible complicated pneumonia. Bilateral lower lobe pneumonia, greater on the right, with noted opacities, with suspected pneumonia atelectasis on CT angiogram chest on review, with noted moderate right side pleural effusion, chest ultrasound reviewed, noted mild to moderate pleural effusion, requested thoracentesis. Possible parapneumonic effusion. Discussed with radiology, Requesting to hold Lovenox, Toradol. Requested initial lab studies including analysis, Gram stain culture, LDH, protein, ADA, as well as cytology. Will request fungal studies. Consider addition of AFB in case of positive ADA. Per discussion with her father no travel outside the country. No exposure to persons with known TB. [place] with lots of [place] around. Reviewed vitals, CBC, BMP, blood culture, so far negative. Negative flu, COVID, RSV PCR. Pending additional studies including blasto cocci, histo, galactomannan, as well as serology respiratory tularemia, Ehrlichia, Lyme, Rickettsia, as well as AFB. Discussed with RT, requesting induced sputum as she is not producing much phlegm. Continue empiric antibiotic coverage currently with ceftriaxone, azithromycin. Follow-up pending cultures. With reports of cough with drinking water requesting additional assessment with modified barium swallow to assess for any possible aspiration. Add incentive spirometer, flutter valve. Mucinex to aid in expectoration. Tessalon for hacking cough as needed. Continues with gentle IV hydration. Discussed with nursing, window caser. A1c reviewed, 5.4. FINDINGS: Pulmonary arteries: No pulmonary artery embolism identified. Main pulmonary artery is normal caliber. Aorta: No aortic aneurysm. No aortic dissection or evidence of acute aortic abnormality. Lungs: Airspace consolidation and areas of ground-glass opacity in the right lower lobe. There is also RLL compressive and dependent atelectasis. Opacification of the right middle lobe with volume loss. Scattered areas of ground-glass opacity in the left upper lobe and lingula. Scattered areas of ground-glass opacity in the left lower lobe with patchy airspace opacities predominantly at the left lung base. Some of the opacities are somewhat nodular with no definite cavitation. Pleural spaces: Moderate right pleural effusion. No pneumothorax. Heart: Heart size is normal. No pericardial effusion. Lymph nodes: Few upper normal mediastinal lymph nodes and mildly enlarged right hilar lymph node measuring 1.4 cm in short axis dimension. Bones/joints: No acute osseous abnormality or suspicious osseous lesion. Manubriosternal joint sclerosis and endplate changes. Soft tissues: Unremarkable. Other findings: No acute abnormality in the included upper abdomen. -Did report 1 episode of hemoptysis, -[place] farm -Rest of the family numbers were also sick -Does have cervical lymphadenopathy -Symptoms have been present for the last month -Subjective fevers Plan -Broad-spectrum workup -CRP, Pro-Neri, sed rate, fungal studies, LDH, AFB, QuantiFERON -With lymphadenopathy, ordered lymphoma, leukemia panel -Right pleural effusion ultrasound chest to assess for parapneumonic effusion versus empyema, patient might require thoracentesis -Cardiac echo -Blood cultures, sputum cultures -Rocephin -Azithromycin -Full code -hCG reviewed, negative -Lovenox for DVT prophylaxis requesting thoracentesis. Discussed with radiology. PDMP PDMP Reviewed: Not Reviewed Attestations 2 Medical Necessity Statement*: Continue admission for assessment management of complicated pneumonia, with parapneumonic effusion, exclude empyema, assessment of possible atypical pneumonia in a young lady without other past medical history, without known immunocompromising conditions. and High MDM includes amount and/or complexity of data reviewed/ordered [ resulted lab(s)/test(s), ordered lab(s)/test(s), independent historian and other healthcare professional discussion] as documented Diagnoses Atypical pneumonia J18.9 Pleural effusion, right J90
[2024-10-29] MEDS: AZITHROMYCIN ADD-Vantage 500 MG in 0.9% NaCl ADD-Vantage 250 ML 250 MG IV (16:41)
[2024-10-29] MEDS: cefTRIAXone 1,000 mg SDV 1000 MG IVP (16:41)
[2024-10-29] MEDS: benzonatate 100 mg Capsule 200 MG PO (20:40)
[2024-10-30] VITALS (22 sets, daily range): BP systolic 93–120; BP diastolic 51–69; PULSE 70–109; RESP 16–22; TEMP 36.4–36.8; O2SAT 88–98
[2024-10-30] MEDS: acetaminophen 325 mg Tablet 650 MG PO ×3 (00:52→17:11)
[2024-10-30] MEDS: albuterol 2.5 mg/3 mL Neb INHALATION ×4 (03:48→22:10)
[2024-10-30 04:56] LABS: Basophils # 0.1 10^3/uL (0.0-0.1); Eosinophils # 0.1 10^3/uL (0.0-0.8); Eosinophils % 0.8 %; Hematocrit 33.4 % (36-47); Lymphocytes # 1.8 10^3/uL (0.8-4.8); Lymphocytes % 20.3 %; Mean Corpuscular HGB Conc 31.4 g/dL (30-55); Mean Corpuscular Hemoglobin 28.9 pg (27-33); Mean Platelet Volume 8.6 fL (7.4-10.4); Monocytes # 0.6 10^3/uL (0.2-0.9); Monocytes % 6.7 %; Neutrophils # 6.44 10^3/uL (1.8-7.7); Neutrophils % 70.9 %; Nucleated Red Blood Cells % 0 %; Platelet Count 548 10^3/cmm (157-399); Red Blood Count 3.63 10^6/uL (3.85-5.65); Red Cell Distribution Width 13.3 % (12.1-15.1); White Blood Count 9.08 10^3/uL (3.29-11.43)
[2024-10-30 05:11] LABS: INR 1.06 (0.8-1.2)
[2024-10-30 05:23] LABS: Anion Gap 15.4 (5-19); Blood Urea Nitrogen 6 mg/dL (6-20); Calcium 9.1 mg/dL (8.5-10.5); Carbon Dioxide 24 mmol/L (22-29); Chloride 105 mmol/L (98-107); Creatinine Clr Calc Pharmacy 160.5943; Glomerular Filtration Rate 192.9 mL/min (90-130); Glucose 106 mg/dL (65-115); Osmolality Calculated 288 mOsm/kg (285-295); Potassium 4.4 mmol/L (3.5-5.1); Sodium 140 mmol/L (136-145)
--- NOTE | 2024-10-30 08:00 | FL_ITS ---
WS: [id number] Modified barium swallow, 10/30/2024 Clinical Data: Oropharyngeal dysphagia Comparison: None. Fluoroscopy time: 1min [id number] # of spot films: 1 Findings: The patient swallowed the barium without hesitation. There is no premature spillage. There was minimal hypopharyngeal residual which cleared with double swallows. There was no aspiration or penetration. The patient swallowed the barium tablet without hesitation and it move normally into the stomach. FL/FL barium swallow modifd [id number] Impression: Normal modified barium swallow.
--- NOTE | 2024-10-30 09:00 | XR_ITS ---
WS: [id number] PORTABLE CHEST HISTORY: post thoracentesis, RIGHT COMPARISON: 10/28/2024 Status post RIGHT thoracentesis. There is an air-fluid level in the RIGHT lung which has slightly improved since 10/28/2024. LEFT lung is clear. Persistent RIGHT pleural effusion with atelectasis. Cardiac size: Normal. Mediastinum/Aorta: Normal mediastinum. No osseous abnormality seen. XR/XR chest 1V portable [id number] IMPRESSION: 1. Slight decrease in size of the RIGHT pleural effusion since the prior study and postthoracentesis. 2. Reidentified is an air-fluid level in the RIGHT lung which was present on p rior radiographs also. No air was noted in the pleural space during the thorace ntesis. There is no apical pneumothorax. 3. As there has been no significant change in appearance of the lung consolida tion and air-fluid level consistent with a hydropneumothorax since 10/28/2024 co nsider reevaluation by chest CT to evaluate for cavitary/necrotic infiltrate or entrapped air or loculated pneumothorax.
[2024-10-30] MEDS: benzonatate 100 mg Capsule 200 MG PO ×2 (09:09→17:08)
[2024-10-30] MEDS: guaiFENesin 600 mg Tablet 1200 MG PO ×2 (09:10→17:08)
[2024-10-30 09:24] LABS: Cyto Order Verification Order Verified
[2024-10-30 09:35] LABS: Body Fluid Polynuclear #Cells 5.772; Body Fluid WBC 9868 /uL; Monocytes # Body Fluid 4.096
[2024-10-30 09:36] LABS: Apprearance, Body Fluid CLOUDY; Color, Body Fluid PALE YELLOW; Fluid Laterality Right Upper
[2024-10-30 09:37] LABS: PATH Referral YES
[2024-10-30 11:26] LABS: LDH Pleural Fluid 339 U/L; Total Protein Pleural Fluid 4.7 g/dL
[2024-10-30 11:42] LABS: Hematocrit Body Fluid 0.1 %
[2024-10-30 11:46] LABS: Albumin Body Fluid 2.7 g/dL; Creatinine Body Fluid 0.35 (0.5-0.9)
[2024-10-30 12:00] LABS: Triglycerides, Pleural Fluid 49 mg/dL
[2024-10-30 12:54] LABS: Leukemia Profile (BBPL) See Report
[2024-10-30] MEDS: morphine 4 mg/mL SDV 1 mL 1 MG IVP ×2 (12:57→22:44)
[2024-10-30] MEDS: guaiFENesin-dextromethorphan UDC 10 mL 5 ML PO (12:58)
--- NOTE | 2024-10-30 14:50 | XRR_ITS ---
PROCEDURE INFORMATION: Exam: XR Chest Exam date and time: 10/30/2024 3:27 PM Age: 24 years old Clinical indication: Shortness of breath; Post thoracentesis; Additional info: SOB TECHNIQUE: Imaging protocol: Radiologic exam of the chest. Views: 1 view. COMPARISON: CR XR chest 1V portable [id number] 10/30/2024 8:17 AM FINDINGS: Lungs: Patchy opacities at the right lung base are nonspecific without interval change. Pleural spaces: Moderate right pleural effusion. Negative for pneumothorax. Heart/Mediastinum: Unremarkable. No cardiomegaly. Bones/joints: Unremarkable. XR/XR chest 1V portable [id number] IMPRESSION: Negative for interval changes.
--- NOTE | 2024-10-30 15:02 | P.PN_ITS ---
Subjective 2 Subjective: Patient was seen this morning, father is at bedside she does complain some pleurisy which persists, denies any fevers, no chills, does have a cough Vitals/I&O/Wt Last Vital Signs Temp 98.1 F 10/30/24 11:55 Pulse 94 10/30/24 14:32 Resp 18 10/30/24 14:32 BP 105/65 10/30/24 11:55 Pulse Ox 96 10/30/24 14:32 O2 Del Method Room Air 10/30/24 14:32 10/30/24 10/30/24 10/30/24 06:59 14:59 22:59 Intake Total 1480 / 1480 Balance 1480 / 1480 Weight last 48 hrs Weight 47.627 kg Weight 47.355 kg Weight 47.174 kg Physical Exam 2 Const: COMMON NORMALS: no acute distress and patient oriented x3 Resp: COMMON NORMALS: normal respiratory effort, No retractions and No use of accessory muscles AUSCULTATION: wheezes Cardio: COMMON NORMALS: regular rate, regular rhythm, S1 normal heart sound present and S2 normal heart sound present RATE: regular rate RHYTHM: r egular rhythm HEART SOUNDS: S1 normal heart sound present and S2 normal heart sound present GI: COMMON NORMALS: Normal to inspection, nondistended, normoactive bowel sounds present and non-tender Extremity: COMMON NORMALS: no pedal edema Neuro: COMMON NORMALS: patient oriented x3 Psych: COMMON NORMALS: mental status grossly normal Data 10/30/24 04:05 10/30/24 04:05 Micro: Microbiology 10/29/24 17:05 Gram Stain - Final Sputum - Expectorated Sputum Sputum Culture - Preliminary 10/30/24 09:00 Gram Stain - Final Pleural Fluid 10/28/24 14:57 Blood Culture - Preliminary Blood NEGATIVE TO DATE 10/28/24 14:50 Blood Culture - Preliminary Blood NEGATIVE TO DATE A&P Assessment and plan (1) Atypical pneumonia: (2) Pleural effusion, right: Plan CT angiogram the chest FINDINGS: Pulmonary arteries: No pulmonary artery embolism identified. Main pulmonary artery is normal caliber. Aorta: No aortic aneurysm. No aortic dissection or evidence of acute aortic abnormality. Lungs: Airspace consolidation and areas of ground-glass opacity in the right lower lobe. There is also RLL compressive and dependent atelectasis. Opacification of the right middle lobe with volume loss. Scattered areas of ground-glass opacity in the left upper lobe and lingula. Scattered areas of ground-glass opacity in the left lower lobe with patchy airspace opacities predominantly at the left lung base. Some of the opacities are somewhat nodular with no definite cavitation. Pleural spaces: Moderate right pleural effusion. No pneumothorax. Heart: Heart size is normal. No pericardial effusion. Lymph nodes: Few upper normal mediastinal lymph nodes and mildly enlarged right hilar lymph node measuring 1.4 cm in short axis dimension. Bones/joints: No acute osseous abnormality or suspicious osseous lesion. Manubriosternal joint sclerosis and endplate changes. Soft tissues: Unremarkable. Other findings: No acute abnormality in the included upper abdomen. -Did report 1 episode of hemoptysis, -[place] -Rest of the family numbers were also sick -Does have cervical lymphadenopathy -Symptoms have been present for the last month -Subjective fevers Plan -Continue Rocephin -Continue Zithromycin - fungal studies, AFB, QuantiFERON, tick panel, -LDH 147 -With lymphadenopathy, ordered lymphoma, leukemia panel -Right pleural effusion ultrasound chest to assess for complicated versus uncomplicated parapneumonic effusion versus empyema, thoracentesis to be done today -Cardiac echo CONCLUSIONS Normal left ventricular size, systolic function and wall thickness, with no regional wall motion abnormalities. Left ventricular ejection fraction is estimated at 60 %. Normal diastolic function. There is no pericardial effusion. No significant valve abnormalities. Right atrial pressure is around 5 mm of mercury. -Blood cultures, sputum cultures -Full code -Lovenox for DVT prophylaxis PDMP PDMP Reviewed: Not Reviewed Attestations 2 Medical Necessity Statement*: Patient requires hospitalization for pneumonia, right pleural effusion, required IV antibiotics, inpatient monitoring Diagnoses Atypical pneumonia J18.9 Pleural effusion, right J90
[2024-10-30] MEDS: cefTRIAXone 1,000 mg SDV 1000 MG IVP (17:09)
[2024-10-30] MEDS: AZITHROMYCIN ADD-Vantage 500 MG in 0.9% NaCl ADD-Vantage 250 ML 250 MG IV (17:10)
[2024-10-30 17:43] LABS: Procalcitonin 0.07 ng/mL (0-0.5)
--- NOTE | 2024-10-30 19:15 | US_ITS ---
WS: [id number] ULTRASOUND-GUIDED THORACENTESIS, RIGHT HISTORY: pleural effusion Procedure, risks, and complications were explained to the patient. With the patient in an upright position, the skin over the RIGHT posterior thorax was cleansed with ChloraPrep and anesthetized with 1% buffered lidocaine. A 5 Hong Konger Yueh needle is inserted into the pleural fluid without complication. Approximately 700 cc of light orange pleural fluid is removed without difficulty. Pleural fluid specimen collected for analysis as requested. / thoracentesis [id number] IMPRESSION: 1. RIGHT thoracentesis yielding 700 cc of fluid. 2. Chest radiograph to follow to evaluate for pneumothorax.
[2024-10-30] MEDS: enoxaparin 40 mg/0.4 mL Syringe SUBCUT (20:50)
[2024-10-31] VITALS (11 sets, daily range): BP systolic 101–129; BP diastolic 62–76; PULSE 77–98; RESP 16–18; TEMP 36.4–36.9; O2SAT 95–97
[2024-10-31 03:39] LABS: Lyme AB Screen <0.90 index
[2024-10-31 05:06] LABS: Basophils # 0.1 10^3/uL (0.0-0.1); Basophils % 1.3 %; Eosinophils # 0.1 10^3/uL (0.0-0.8); Eosinophils % 1.4 %; Lymphocytes # 1.3 10^3/uL (0.8-4.8); Lymphocytes % 15.3 %; Mean Corpuscular HGB Conc 32.3 g/dL (30-55); Mean Corpuscular Hemoglobin 29.1 pg (27-33); Mean Corpuscular Volume 90.1 fl (85-98); Mean Platelet Volume 8.3 fL (7.4-10.4); Monocytes # 0.7 10^3/uL (0.2-0.9); Monocytes % 7.9 %; Neutrophils # 6.18 10^3/uL (1.8-7.7); Neutrophils % 73.6 %; Nucleated Red Blood Cells % 0 %; Platelet Count 507 10^3/cmm (157-399); Red Blood Count 3.44 10^6/uL (3.85-5.65); Red Cell Distribution Width 13.4 % (12.1-15.1); White Blood Count 8.39 10^3/uL (3.29-11.43)
[2024-10-31 05:30] LABS: Anion Gap 14.1 (5-19); Blood Urea Nitrogen 8 mg/dL (6-20); Calcium 9.1 mg/dL (8.5-10.5); Carbon Dioxide 24 mmol/L (22-29); Chloride 101 mmol/L (98-107); Creatinine Clr Calc Pharmacy 160.5943; Glomerular Filtration Rate 192.9 mL/min (90-130); Glucose 105 mg/dL (65-115); Osmolality Calculated 279 mOsm/kg (285-295); Potassium 4.1 mmol/L (3.5-5.1); Sodium 135 mmol/L (136-145)
[2024-10-31 05:31] LABS: C Reactive Protein 68.7 mg/L (0.0-4.9)
[2024-10-31 05:32] LABS: Procalcitonin 0.06 ng/mL (0-0.5)
[2024-10-31] MEDS: benzonatate 100 mg Capsule 200 MG PO ×2 (08:24→17:10)
[2024-10-31] MEDS: guaiFENesin 600 mg Tablet 1200 MG PO ×2 (08:25→17:10)
[2024-10-31] MEDS: albuterol 2.5 mg/3 mL Neb INHALATION ×3 (08:41→20:09)
--- NOTE | 2024-10-31 08:58 | XRR_ITS ---
PROCEDURE INFORMATION: Exam: XR Chest Exam date and time: 10/31/2024 8:12 AM Age: 24 years old Clinical indication: Shortness of breath TECHNIQUE: Imaging protocol: Radiologic exam of the chest. Views: 1 view. COMPARISON: CR XR chest 1V portable [id number] 10/30/2024 3:27 PM FINDINGS: Lungs: Ongoing right lower and middle lobe pneumonia. The left lung is clear. Pleural spaces: Moderate right pleural effusion. Heart/Mediastinum: No cardiomegaly. Bones/joints: Unremarkable. XR/XR chest 1V portable [id number] IMPRESSION: No interval change.
[2024-10-31] MEDS: morphine 4 mg/mL SDV 1 mL 1 MG IVP ×2 (09:22→19:13)
[2024-10-31] MEDS: guaiFENesin-dextromethorphan UDC 10 mL 5 ML PO (10:40)
[2024-10-31] MEDS: lidocaine 5% Patch 1 PATCH TOPICAL (11:22)
[2024-10-31] MEDS: ketorolac 30 mg/mL INJ 15 MG IVP ×2 (11:27→17:11)
--- NOTE | 2024-10-31 12:55 | P.PN_ITS ---
Subjective 2 Subjective: - Patient was seen this morning -Father is at bedside -She is normotensive, on room air -Afebrile overnight, no chills -Continues to have a nonproductive cough -Her complaint this morning is right-chris ed pleurisy, especially with coughing, with taking deep breaths and -She had a thoracentesis yesterday 600 m L removed she did feel a bit better after, but throughout the night she tells me that the pleurisy returned, -Had a detailed discussion with patient and her father about her thoracentesis results, chest x-ray -Thoracentesis seems to suggest exudativ e pleural effusion, and a complicated parapneumonic effusion, I have not completely ruled out an empyema, and the chest x-ray suggest that the pleural effusion is reoccurring which has me concern that she is going to need to have evaluation by pulmonary/CT surgery for consideration of thoracoscopy, potentially even chest tube placement -In terms of her workup for other causes , such as tuberculosis and fungal studies, so far her test results are pending, and will take time -I discussed that as we do not have pulm onary/CT surgery available here at [facility] I would recommend for her to be transferred to tertiary level center -We discussed options in [facility] in [place], they are in agreement -Spoke to [facility], they are current ly on divert and full -Spoke to [facility], they are currently on divert and full -Spoke to [facility] in [facility], they have a wait list over 2 weeks -I spoke to [facility] in [facility], spoke to the transfer center, spoke to their hospitalist nurse practitioner, patient has been accepted, however there is no bed immediately available and he could take 24 to 48 hours or even longer -Also spoke to [facility] and [place], spoke to the change management consultant, she has been accepted, awaiting a callback from the CT surgeon Vitals/I&O/Wt Last Vital Signs Temp 98.0 F 10/31/24 11:19 Pulse 86 10/31/24 11:19 Resp 17 10/31/24 11:19 BP 121/76 10/31/24 11:19 Pulse Ox 97 10/31/24 11:19 O2 Del Method Room Air 10/31/24 11:19 10/30/24 10/31/24 10/31/24 22:59 06:59 14:59 Intake Total 1530 / 3010 600 / 3610 360 / 360 Output Total / 652 Balance 1530 / 2360 598 / 2958 360 / 360 Weight last 48 hrs Weight 49.895 kg Weight 47.627 kg Physical Exam 2 Const: COMMON NORMALS: no acute distress and patient oriented x3 Resp: COMMON NORMALS: normal respiratory effort, No retractions and No use of accessory muscles OTHER: Decreased air movement of right lower lobe Cardio: COMMON NORMALS: regular rate, regular rhythm, S1 normal heart sound present and S2 normal heart sound present RATE: regular rate RHYTHM: r egular rhythm HEART SOUNDS: S1 normal heart sound present and S2 normal heart sound present GI: COMMON NORMALS: Normal to inspection, nondistended, normoactive bowel sounds present and non-tender Extremity: COMMON NORMALS: no pedal edema Neuro: COMMON NORMALS: patient oriented x3 Psych: COMMON NORMALS: mental status grossly normal Data 10/31/24 04:45 10/31/24 04:45 Micro: Microbiology 10/30/24 09:00 Gram Stain - Final Pleural Fluid Body Fluid Culture - Preliminary 10/29/24 17:05 Gram Stain - Final Sputum - Expectorated Sputum Sputum Culture - Final 10/29/24 13:10 Mycobacterial Smear - Preliminary Body Fluids - Bronchial A&P Assessment and plan (1) Atypical pneumonia: (2) Pleural effusion, right: (3) Parapneumonic effusion: (4) Pleurisy: Plan CT angiogram the chest FINDINGS: Pulmonary arteries: No pulmonary artery embolism identified. Main pulmonary artery is normal caliber. Aorta: No aortic aneurysm. No aortic dissection or evidence of acute aortic abnormality. Lungs: Airspace consolidation and areas of ground-glass opacity in the right lower lobe. There is also RLL compressive and dependent atelectasis. Opacification of the right middle lobe with volume loss. Scattered areas of ground-glass opacity in the left upper lobe and lingula. Scattered areas of ground-glass opacity in the left lower lobe with patchy airspace opacities predominantly at the left lung base. Some of the opacities are somewhat nodular with no definite cavitation. Pleural spaces: Moderate right pleural effusion. No pneumothorax. Heart: Heart size is normal. No pericardial effusion. Lymph nodes: Few upper normal mediastinal lymph nodes and mildly enlarged right hilar lymph node measuring 1.4 cm in short axis dimension. Bones/joints: No acute osseous abnormality or suspicious osseous lesion. Manubriosternal joint sclerosis and endplate changes. Soft tissues: Unremarkable. Other findings: No acute abnormality in the included upper abdomen. -Did report 1 episode of hemoptysis, -[place] -Rest of the family numbers were also sick -Does have cervical lymphadenopathy -Symptoms have been present for the last month -Subjective fevers -With complaints of persistent pleurisy, shortness of breath Plan -Continue Rocephin -Continue Zithromycin - fungal studies, AFB smears, QuantiFERON, tick panel, -LDH 147 -With lymphadenopathy, ordered lymphoma, leukemia panel -Right pleural effusion, exudative, complicated parapneumonic effusion, concerns for possible empyema -Pale yellow, 9862 WBCs, 58.5% PMNs, albumin 2.7, pH 7, total protein 4.7, LDH 339, glucose 99, no organisms on Gram stain, body fluid culture no growth after 1 day -Repeat chest x-ray today shows recurrence of pleural effusion -Cardiac echo CONCLUSIONS Normal left ventricular size, systolic function and wall thickness, with no regional wall motion abnormalities. Left ventricular ejection fraction is estimated at 60 %. Normal diastolic function. There is no pericardial effusion. No significant valve abnormalities. Right atrial pressure is around 5 mm of mercury. -Blood cultures, sputum cultures so far no growth -Full code -Lovenox for DVT prophylaxis Plan for today, monitor respiratory status closely treat pleurisy, await transfer to tertiary level center PDMP PDMP Reviewed: Not Reviewed Attestations 2 Medical Necessity Statement*: Patient requires hospitalization for pneumonia, parapneumonic effusion recurrent pleural effusion Diagnoses Atypical pneumonia J18.9 Pleural effusion, right J90 Parapneumonic effusion J18.9; J91.8 Pleurisy R09.1
[2024-10-31] MEDS: cefTRIAXone 1,000 mg SDV 1000 MG IVP (17:14)
[2024-10-31] MEDS: AZITHROMYCIN ADD-Vantage 500 MG in 0.9% NaCl ADD-Vantage 250 ML 250 MG IV (17:15)
[2024-10-31] MEDS: enoxaparin 40 mg/0.4 mL Syringe SUBCUT (20:41)
--- NOTE | 2024-10-31 21:16 | PC.NURSE ---
at 1999 report given to Luz Maria August of [facility], EMS picked pt up and left @2114, pt father gathering all belongings to take with him. pt A&O x4, ambulatory. all appropriate paperworks sent with EMS
[2024-10-31 21:30] LABS: F.tularensis IgG AB Serum Negative (Negative); F.tularensis IgM AB Serum Negative (Negative)
--- NOTE | 2024-11-01 08:36 | P.TS_ITS ---
Transfer Summary Providers Date of Admission: 10/28/24 17:36 Date of Discharge/Transfer: 11/17/24 Attending Provider at Admission: Lito Keenan MD Attending Provider at Transfer: Lito Keenan MD Primary Care Provider: ROSELIA Corcoran Transfer Plans: Anticipated date of transfer: 11/17/24 . Diagnoses at Discharge Discharge Diagnosis (1) Atypical pneumonia: Status: Acute (2) Pleural effusion, right: Status: Acute (3) Parapneumonic effusion: Status: Acute (4) Pleurisy: Status: Acute Reason for Visit Reason for Visit sob, sent from walk in [place] [facility] Course Hospital Course Leanna Carter is a 24 year old female with no significant past medical history, who presents to [facility] due to cough, shortness of breath, pleurisy. Currently patient is alert and oriented x 3, following all commands, on room air, normotensive, she does complain of a nonproductive cough, shortness of breath, pleurisy especially with coughing, anterior chest discomfort that worsens when sitting up and leaning forward. According to patient back in mid September, her normal family were sick, they thought it was a viral illness, had a cough, congestion, but her symptomatology persisted. She tells me that her brother is still sick, her sister is also sick, her mother was diagnosed with bronchitis. Her father also tells me that he was also sick, but he has gotten better. But she continued to have cough, congestion, which persisted for the last month, which is progressed to shortness of breath, pleurisy, anterior chest discomfort, worse with bending forward. She thinks maybe 1 time she had an episode of hemoptysis but it was only slightly blood- tinged. 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, she works with animals, chickens/goats/cows, no travel outside the state, she was born in [place], father thinks that she has missed some of her vaccinations, denies any headache, blurry vision, no neck pain no, no new rashes, denies being , no abdominal pain, no lightheadedness, no dizziness, she does report subjective fevers, does report lymphadenopathy of her neck, does report sore throat, denies smoking, no vaping, no known exposures Patient was admitted to [facility] for pneumonia, with concerns for complicated parapneumonic effusion, received IV antibiotics, broad-spectrum workup as below: CT angiogram the chest FINDINGS: Pulmonary arteries: No pulmonary artery embolism identified. Main pulmonary artery is normal caliber. Aorta: No aortic aneurysm. No aortic dissection or evidence of acute aortic abnormality. Lungs: Airspace consolidation and areas of ground-glass opacity in the right lower lobe. There is also RLL compressive and dependent atelectasis. Opacification of the right middle lobe with volume loss. Scattered areas of ground-glass opacity in the left upper lobe and lingula. Scattered areas of ground-glass opacity in the left lower lobe with patchy airspace opacities predominantly at the left lung base. Some of the opacities are somewhat nodular with no definite cavitation. Pleural spaces: Moderate right pleural effusion. No pneumothorax. Heart: Heart size is normal. No pericardial effusion. Lymph nodes: Few upper normal mediastinal lymph nodes and mildly enlarged right hilar lymph node measuring 1.4 cm in short axis dimension. Bones/joints: No acute osseous abnormality or suspicious osseous lesion. Manubriosternal joint sclerosis and endplate changes. Soft tissues: Unremarkable. Other findings: No acute abnormality in the included upper abdomen. -Did report 1 episode of hemoptysis, -She does live [place] a farm -Rest of the family numbers were also sick -Does have cervical lymphadenopathy -Symptoms have been present for the last month -Subjective fevers -With complaints of persistent pleurisy, shortness of breath Plan -Continue Rocephin -Continue Zithromycin - fungal studies, AFB smears, QuantiFERON, tick panel, -LDH 147 -With lymphadenopathy, ordered lymphoma, leukemia panel -Right pleural effusion, exudative, complicated parapneumonic effusion, concerns for possible empyema -Pale yellow, 9862 WBCs, 58.5% PMNs, albumin 2.7, pH 7, total protein 4.7, LDH 339, glucose 99, no organisms on Gram stain, body fluid culture no growth after 1 day -Repeat chest x-ray today shows recurrence of pleural effusion -Cardiac echo CONCLUSIONS Normal left ventricular size, systolic function and wall thickness, with no regional wall motion abnormalities. Left ventricular ejection fraction is estimated at 60 %. Normal diastolic function. There is no pericardial effusion. No significant valve abnormalities. Right atrial pressure is around 5 mm of mercury. 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, I spoke to nursing staff at [facility] were taking care of the patient, notified them of the positive test results and fax her Aspergillus antigen test to [facility] Physical Exam Const: COMMON NORMALS: no acute distress and patient oriented x3 Resp: COMMON NORMALS: normal respiratory effort, No retractions, No use of accessory muscles and clear to auscultation bilaterally AUSCULTATION: clear to auscultation bilaterally Cardio: COMMON NORMALS: regular rate, regular rhythm, S1 normal heart sound present and S2 normal heart sound present RATE: regular rate RHYTHM: regular rhythm HEART SOUNDS: S1 normal heart sound present and S2 normal heart sound present GI: COMMON NORMALS: Normal to inspection, nondistended, normoactive bowel sounds present and non-tender Extremity: COMMON NORMALS: no pedal edema Neuro: COMMON NORMALS: patient oriented x3 Psych: COMMON NORMALS: mental status grossly normal TS Data Studies Completed and Pending Pending at discharge Category Date Time Status Amylase, Pleural Fluid Routine Lab 10/30/24 09:00 Received AFB [Mycobacteria, Culture w/Fluor] Stat Lab 10/28/24 17:05 Results OLIVIER Profile Rheumatology Stat Lab 10/31/24 14:29 Received Aspergillus AG,EIA,Serum Stat Lab 10/28/24 17:56 Received BLASTOMYCES AG [MVista Blastomyces AG Quant] Routine Lab 10/28/24 17:56 Received Blood Culture Stat Lab 10/28/24 14:57 Results Body Fluid Culture & GS Routine Lab 10/29/24 09:00 Results Coccidioides AB Immunodiffusio Routine Lab 10/28/24 17:56 Received Fungal Culture not HR/SK/BL Routine Lab 10/29/24 09:00 Received Fungal Culture not HR/SK/BL Routine Lab 10/29/24 17:05 Received Histoplasma Quantitative AG Routine Lab 10/28/24 17:56 Received Mycobacteria, Culture w/Fluor Routine Lab 10/30/24 09:00 Received Uyysdwtplyi-NQ-Pedw Plus Routine Lab 10/28/24 17:56 Received Tick Panel Stat Lab 10/28/24 17:56 Results Cytology [PTH] Routine Pth 10/29/24 19:16 Received Completed Studies During Hospitalization Category Date Time Status CT angio chest PE protcl [id number] Stat Cat Scan 10/28/24 14:23 Completed FL barium swallow modifd [id number] Routine Exams 10/30/24 08:00 Completed XR chest 1V portable [id number] Routine Exams 10/30/24 14:50 Completed XR chest 1V portable [id number] Stat Exams 10/28/24 14:08 Completed XR chest 1V portable [id number] Stat Exams 10/30/24 09:00 Completed XR chest 1V portable [id number] Stat Exams 10/31/24 08:58 Completed CV. echo complete* [id number] Stat Ultrasound 10/28/24 17:13 Completed US chest [id number] Stat Ultrasound 10/28/24 17:11 Completed US thoracentesis [id number] Routine Ultrasound 10/30/24 19:15 Completed Laboratory Last Values WBC 8.39 10^3/uL (3.29-11.43) 10/31/24 04:45 RBC 3.44 10^6/uL (3.85-5.65) L 10/31/24 04:45 Hgb 10.00 g/dL (11.27-16.99) L 10/31/24 04:45 Hct 31.0 % (36-47) L 10/31/24 04:45 MCV 90.1 fl (85-98) 10/31/24 04:45 MCH 29.1 pg (27-33) 10/31/24 04:45 MCHC 32.3 g/dL (30-55) 10/31/24 04:45 RDW 13.4 % (12.1-15.1) 10/31/24 04:45 Plt Count 507 10^3/cmm (157-399) H 10/31/24 04:45 MPV 8.3 fL (7.4-10.4) 10/31/24 04:45 Neut % (Auto) 73.6 % 10/31/24 04:45 Lymph % (Auto) 15.3 % 10/31/24 04:45 Mcmullen % (Auto) 7.9 % 10/31/24 04:45 Eos % (Auto) 1.4 % 10/31/24 04:45 Baso % (Auto) 1.3 % 10/31/24 04:45 Neut # (Auto) 6.18 10^3/uL (1.8-7.7) 10/31/24 04:45 Lymph # (Auto) 1.3 10^3/uL (0.8-4.8) 10/31/24 04:45 Mcmullen # (Auto) 0.7 10^3/uL (0.2-0.9) 10/31/24 04:45 Eos # (Auto) 0.1 10^3/uL (0.0-0.8) 10/31/24 04:45 Baso # (Auto) 0.1 10^3/uL (0.0-0.1) 10/31/24 04:45 Nucleated RBC % (auto) 0 % 10/31/24 04:45 Nucleated RBCs # 0.0 /100WBC 10/31/24 04:45 Differential Comment Yes 10/30/24 09:00 Peripher Smr Path Cons Sent for review 10/28/24 17:56 ESR 22 mm/hr (0-15) H 10/28/24 14:10 Haptoglobin 435.0 mg/L (30-200) H 10/28/24 14:10 PT 14.50 SECONDS (12.1-14.9) 10/30/24 04:05 INR 1.06 (0.8-1.2) 10/30/24 04:05 Sodium 135 mmol/L (136-145) L 10/31/24 04:45 Potassium 4.1 mmol/L (3.5-5.1) 10/31/24 04:45 Chloride 101 mmol/L (98-107) 10/31/24 04:45 Carbon Dioxide 24 mmol/L (22-29) 10/31/24 04:45 Anion Gap 14.1 (5-19) 10/31/24 04:45 BUN 8 mg/dL (6-20) 10/31/24 04:45 Creatinine 0.4 mg/dL (0.5-0.9) L 10/31/24 04:45 GFR Calculation 192.9 mL/min (90-130) H 10/31/24 04:45 Glucose 105 mg/dL (65-115) 10/31/24 04:45 Estimat Average Glucose 108 10/28/24 14:10 Hemoglobin A1c 5.4 % (4.0-6.0) 10/28/24 14:10 Calculated Osmolality 279 mOsm/kg (285-295) L 10/31/24 04:45 Lactic Acid 0.7 mmol/L (0.5-2.2) 10/28/24 14:10 Calcium 9.1 mg/dL (8.5-10.5) 10/31/24 04:45 Total Bilirubin 0.2 mg/dL (0.15-1.2) 10/28/24 14:10 AST 16 U/L (0-32) 10/28/24 14:10 ALT 20 U/L (0-33) 10/28/24 14:10 Alkaline Phosphatase 78 U/L (35-105) 10/28/24 14:10 Lactate Dehydrogenase 147 U/L (135-214) 10/28/24 14:10 Troponin T Baseline < 6 ng/L (0-10) 10/28/24 17:56 Troponin T 120 Minute 6.00 ng/L (0-10) 10/28/24 21:06 Delta Troponin T 0.19044 ABS# (0-10) 10/28/24 21:06 Troponin T Hi Sens 6Hr 6.00 ng/L (0-10) 10/28/24 23:55 Troponin T Hi Sens 6Hr Delta 0 ng/L (0-12) 10/28/24 23:55 C-Reactive Protein 68.7 mg/L (0.0-4.9) H 10/31/24 04:45 Total Protein 7.9 g/dL (6.6-8.7) 10/28/24 14:10 Albumin 4.0 g/dL (3.5-5.2) 10/28/24 14:10 Globulin 3.9 g/dL (1.3-4.6) 10/28/24 14:10 Procalcitonin 0.06 ng/mL (0-0.5) 10/31/24 04:45 TSH 2.48 uIU/mL (0.27-4.20) 10/28/24 14:10 HCG, Qual Negative (Negative) 10/28/24 14:10 Urine Color Yellow (Yellow) 10/28/24 15:47 Urine Appearance Clear (CLEAR) 10/28/24 15:47 Urine pH 7.0 (5-7) 10/28/24 15:47 Ur Specific [place] 1.027 (1.005-1.030) 10/28/24 15:47 Urine Protein Negative (Negative) 10/28/24 15:47 Urine Glucose (UA) Negative (Normal) 10/28/24 15:47 Urine Ketones Negative (Negative) 10/28/24 15:47 Urine Blood Negative (Negative) 10/28/24 15:47 Urine Nitrate Negative (Negative) 10/28/24 15:47 Urine Bilirubin Negative (Negative) 10/28/24 15:47 Urine Urobilinogen 0.2 mg/dL (Negative) 10/28/24 15:47 Ur Leukocyte Esterase Negative (Negative) 10/28/24 15:47 Urine RBC 0-2 /hpf (0-2) 10/28/24 15:47 Urine WBC 0-5 /hpf (0-5) 10/28/24 15:47 Ur Squamous Epith Cells 0-5 /hpf (0-5) 10/28/24 15:47 Amorphous Sediment Not Reportable 10/28/24 15:47 Urine Bacteria None seen /hpf (NONE) 10/28/24 15:47 Hyaline Casts 0-4 /lpf H 10/28/24 15:47 Fluid Color Pale yellow 10/30/24 09:00 Fluid Appearance Cloudy 10/30/24 09:00 Fluid WBC 9868 /uL 10/30/24 09:00 Fluid RBC 8.000 10^3/uL 10/30/24 09:00 Fluid Hematocrit 0.1 % 10/30/24 09:00 Fld Polynuclear WBCs # 5.772 10/30/24 09:00 Fld Polynuclear WBCs % 58.500 % 10/30/24 09:00 Fl Mononucl WBCs #(Auto) 4.096 10/30/24 09:00 Fl Mononuclear % Auto 41.500 % 10/30/24 09:00 Fld Crystal Laterality Right upper 10/30/24 09:00 Fluid Albumin 2.7 g/dL 10/30/24 09:00 Fluid Creatinine 0.35 (0.5-0.9) L 10/30/24 09:00 Pleural pH 7.00 (6.5-7.5) 10/30/24 09:00 Pleural pH Cancelled 10/30/24 09:00 Pleural Total Protein 4.7 g/dL 10/30/24 09:00 Pleural Total Protein Cancelled 10/30/24 09:00 Pleural LDH 339 U/L 10/30/24 09:00 Pleural LDH Cancelled 10/30/24 09:00 Pleural Glucose 99.0 mg/dL 10/30/24 09:00 Pleural Triglycerides 49 mg/dL 10/30/24 09:00 Urine Opiates Screen Negative ng/mL (Negative) 10/28/24 15:47 Ur Barbiturates Screen Negative ng/mL (Negative) 10/28/24 15:47 Ur Phencyclidine Scrn Negative ng/mL (Negative) 10/28/24 15:47 Ur Amphetamines Screen Negative ng/mL (Negative) 10/28/24 15:47 U Benzodiazepines Scrn Negative ng/mL (Negative) 10/28/24 15:47 Urine Cocaine Screen Negative ng/mL (Negative) 10/28/24 15:47 U Marijuana (THC) Screen Negative ng/mL (Negative) 10/28/24 15:47 Lymphoma Panel Cancelled 10/28/24 17:56 Immunophenotype Interp See report 10/28/24 17:56 Lyme Ab (Western Blot) <0.90 index 10/28/24 17:56 F. tularensis IgG Ab Negative (Negative) 10/28/24 17:56 F. tularensis IgM Ab Negative (Negative) 10/28/24 17:56 F. tularensis Interpretation See note 10/28/24 17:56 Influenza A (PCR) Negative (Negative) 10/28/24 14:45 Influenza Type B (PCR) Negative (Negative) 10/28/24 14:45 RSV (PCR) Negative (Negative) 10/28/24 14:45 SARS-CoV-2 (PCR) Negative (Negative) 10/28/24 14:45 Radiology Impressions Chest CTA 10/28/24 14:23 IMPRESSION: 1. Bilateral pulmonary opacities as detailed above, most extensive in the right middle and lower lobes and at the left lung base compatible with pneumonia and atelectasis. 2. Moderate right pleural effusion. 3. Mild right hilar adenopathy, likely reactive. 4. No acute pulmonary emboli. 5. Recommend follow-up evaluation following treatment to assess for resolution. ADDENDUM: 10/28/24 [id number] THIS REPORT CONTAINS FINDINGS THAT MAY BE CRITICAL TO PATIENT CARE. The findings were verbally communicated via telephone conference at 4:05 PM CDT on 10/28/2024 with BARB BOWMAN. The findings were acknowledged and understood. Chest Ultrasound 10/28/24 17:11 IMPRESSION: Small to moderate RIGHT pleural effusion. Modified Barium Swallow 10/30/24 08:00 Impression: Normal modified barium swallow. Thoracentesis Ultrasound 10/30/24 19:15 IMPRESSION: 1. RIGHT thoracentesis yielding 700 cc of fluid. 2. Chest radiograph to follow to evaluate for pneumothorax. Chest X-Ray 10/31/24 08:58 IMPRESSION: No interval change. Recent Clincial Data Last Vital Signs Temp 97.6 F 10/31/24 21:20 Pulse 96 10/31/24 21:20 Resp 18 10/31/24 21:20 BP 114/67 10/31/24 21:20 Pulse Ox 96 10/31/24 21:20 O2 Del Method Room Air 10/31/24 20:00 Vital Signs Temp Pulse Resp BP Pulse Ox 10/31/24 21:20 97.6 F 96 18 114/67 96 Intake & Output/Weight 10/30/24 10/31/24 11/01/24 11/02/24 06:59 06:59 06:59 06:59 Intake Total 3465 / 3465 3610 / 3610 730 / 730 Output Total 652 / 652 Balance 3465 / 3465 2958 / 2958 730 / 730 Weight 47.627 kg 49.895 kg Vitals Last Vital Signs Temp 97.6 F 10/31/24 21:20 Pulse 96 10/31/24 21:20 Resp 18 10/31/24 21:20 BP 114/67 10/31/24 21:20 Pulse Ox 96 10/31/24 21:20 O2 Del Method Room Air 10/31/24 20:00 TS Medications Medications Discontinued Medications Acetaminophen (Acetaminophen 325 Mg Tablet) 650 mg PO Q6H PRN PRN Reason: Mild/Mod Pain Or Temp >/= 101 Last Admin: 10/30/24 17:11 Dose: 650 mg Acetaminophen/Codeine Phosphate (Acetaminophen-Codeine 300-30mg Tablet) 1 tab PO ONCE ONE Stop: 10/28/24 22:06 Last Admin: 10/28/24 22:43 Dose: 1 tab Albuterol Sulfate (Albuterol 2.5 Mg/3 Ml Neb) 2.5 mg INHALATION Q4H.RESPIRATORY ATILIO Last Admin: 10/30/24 07:44 Dose: 2.5 mg Albuterol Sulfate (Albuterol 2.5 Mg/3 Ml Neb) 2.5 mg INHALATION Q6H.RESP ATILIO Last Admin: 10/31/24 20:09 Dose: 2.5 mg Benzonatate (Benzonatate 100 Mg Capsule) 200 mg PO TID PRN PRN Reason: COUGH Last Admin: 10/31/24 17:10 Dose: 200 mg Ceftriaxone Sodium (Ceftriaxone 1,000 Mg Sdv) 1,000 mg IVP Q24H ATILIO; Protocol Last Admin: 10/31/24 17:14 Dose: 1,000 mg Enoxaparin Sodium (Enoxaparin 40 Mg/0.4 Ml Syringe) 40 mg SUBCUT Q24H ATILIO Enoxaparin Sodium (Enoxaparin 40 Mg/0.4 Ml Syringe) 40 mg SUBCUT Q24H ATILIO Enoxaparin Sodium (Enoxaparin 40 Mg/0.4 Ml Syringe) 40 mg SUBCUT Q24H ATILIO Last Admin: 10/29/24 05:20 Dose: 40 mg Enoxaparin Sodium (Enoxaparin 40 Mg/0.4 Ml Syringe) 40 mg SUBCUT Q24H ATILIO Last Admin: 10/31/24 20:41 Dose: 40 mg Guaifenesin (Guaifenesin 600 Mg Tablet) 1,200 mg PO BID [facility] Last Admin: 10/31/24 17:10 Dose: 1,200 mg Guaifenesin/Dextromethorphan (Guaifenesin-Dextromethorphan Udc 10 Ml) 5 ml PO Q4H PRN PRN Reason: COUGH Last Admin: 10/31/24 10:40 Dose: 5 ml Azithromycin 500 mg/ Sodium (Chloride) 250 mls @ 250 mls/hr IV Q24H [facility]; Protocol Last Infusion: 10/31/24 19:00 Dose: Infused Sodium Chloride (Sodium Chloride 0.9%) 1,000 mls @ 50 mls/hr IV .Q20H [facility] Last Admin: 10/30/24 10:49 Dose: Not Given Iohexol (Iohexol 350 Mg/Ml 500 Ml Btl (Per Ml)) 0 ml IV ONCE ONE Stop: 10/28/24 15:08 Last Admin: 10/28/24 15:07 Dose: 69 ml Ketorolac Tromethamine (Ketorolac 30 Mg/Ml Inj) 15 mg IVP Q6H PRN PRN Reason: MODERATE PAIN Stop: 11/02/24 19:48 Last Admin: 10/29/24 10:29 Dose: 15 mg Ketorolac Tromethamine (Ketorolac 30 Mg/Ml Inj) 15 mg IVP Q6H PRN PRN Reason: rib pain Stop: 11/05/24 10:44 Last Admin: 10/31/24 17:11 Dose: 15 mg Lidocaine (Lidocaine 5% Patch) 1 patch TOPICAL [id number] ATILIO Last Admin: 10/31/24 20:42 Dose: Not Given Morphine Sulfate (Morphine 4 Mg/Ml Sdv 1 Ml) 1 mg IVP Q4H PRN PRN Reason: SEVERE PAIN Last Admin: 10/31/24 19:13 Dose: 1 mg Naloxone HCl (Naloxone 0.4 Mg/Ml Sdv) 0.1 mg IVP Q2M PRN PRN Reason: OPIATERV Ondansetron HCl (Ondansetron 2 Mg/Ml Sdv 2 Ml) 4 mg IVP Q8H PRN PRN Reason: vomiting, or N/V if npo Allergies No Known Allergies Allergy (Verified 10/28/24 13:12) Home Medications ibuprofen 200 mg tablet 600 mg PO Q6H PRN fever or pain 03/13/20 [History Confirmed 10/28/24] ondansetron 4 mg disintegrating tablet 4 mg PO Q8H PRN nausea and vomiting #10 tabs 02/01/24 [Rx Confirmed 10/28/24] Discharge Plan Discharge Patient Disposition: Home Condition: Stable Prescriptions: No Action ibuprofen 200 mg tablet 600 mg PO Q6H PRN (Reason: fever or pain) ondansetron 4 mg tablet,disintegrating 4 mg PO Q8H PRN (Reason: nausea and vomiting) Qty: 10 0RF Discharge Orders: Discharge Order (Routine); Ordered 11/17/24 Ordered By: Lito Keenan Referrals: Keshia Florez FNP-C [Primary Care Provider] - Patient Instructions: Opioid Safety Transfer Attestations Time Spent in Transfer Care: greater than 30 min Quality Metrics Clinical Quality Measures [ No reported AMI, CVA or VTE this stay] Coding Level of Care Code Acute Code for Chg Fwd Diagnoses Atypical pneumonia J18.9 Pleural effusion, right J90 Parapneumonic effusion J18.9; J91.8 Pleurisy R09.1
[2024-11-01 13:20] LABS: Quantiferon Nil 0.02 IU/mL; Quantiferon Plus TB1 <0.00 IU/mL; Quantiferon Plus TB2 <0.00 IU/mL; Quantiferon TB Gold NEGATIVE (NEGATIVE)
[2024-11-01 16:45] LABS: COMPLEMENT, TOTAL (CH50) >60 U/mL (31-60)
[2024-11-02 03:26] LABS: CENTROMERE B ANTIBODY <1.0 NEG AI (<1.0 NEG); JO-1 ANTIBODY <1.0 NEG AI (<1.0 NEG); RNP ANTIBODY <1.0 NEG AI (<1.0 NEG); SCL-70 ANTIBODY <1.0 NEG AI (<1.0 NEG); SJOGREN'S ANTIBODY (SS-A) <1.0 NEG AI (<1.0 NEG); SM ANTIBODY <1.0 NEG AI (<1.0 NEG); SS-B <1.0 NEG AI (<1.0 NEG)
[2024-11-02 17:14] LABS: RMSF IGG NOT DETECTED; RMSF IGM NOT DETECTED
[2024-11-02 21:35] LABS: E. Chaffeensis AB IGG <1:64; E. Chaffeensis AB IGM <1:20
[2024-11-04 09:01] LABS: THYROID PEROXIDASE ANTIBODIES 1 IU/mL (<9)
[2024-11-04 14:00] LABS: COMPLEMENT COMPONENT C3C 210 mg/dL (83-193); COMPLEMENT COMPONENT C4C 34 mg/dL (15-57)
[2024-11-04 17:38] LABS: Coccidioides IgG Antibody NEGATIVE; Coccidioides IgM Antibody NEGATIVE
[2024-11-04 19:24] LABS: Aspergillus AG,EIA,Serum DETECTED; Aspergillus Galactomannan Inde 2.67
[2024-11-05 12:45] LABS: Amylase, Pleural Fluid 30 U/L
[2024-11-05 13:14] LABS: ANA SCREEN, IFA NEGATIVE (NEGATIVE)
[2024-11-05 19:09] LABS: Histoplasma Antigen (Quant) NONE DETECTED; Histoplasma Antigen Interpreta NEGATIVE; Histoplasma Antigen Specimen SERUM
[2024-11-06 08:40] LABS: Blastomyces Antigen Interpret NEGATIVE; Blastomyces Antigen Result NONE DETECTED
[2024-11-06 14:23] LABS: DNA AB (DS) CRITHIDIA,IFA NEGATIVE (NEGATIVE)
== END 2024-10-31 21:15 | disposition short-term general hospital (02) | DRG 194 ==
LOC: ER 17:10 → ER IP 17:37 → MEDSURG 18:45
PROVIDERS: Internal Medicine; Admitting Provider Family Medicine; Emergency Provider Family Medicine; PCP Nurse Practitioner Family; Visit Provider Family Medicine
DX: J18.9 Pneumonia, unspecified organism (principal); B44.9 Aspergillosis, unspecified; J91.8 Pleural effusion in other conditions classified elsewhere; Z11.52 Encounter for screening for COVID-19
CPT/HCPCS: 32555; 36415; 71045; 71275; 74230; 76604; 80048; 80053; 80306; 80503; 81001; 82042; 82150; 82570; 82945; 83010; 83036; 83605; 83615; 83986; 84145; 84157; 84443; 84478; 84484; 84703; 85014; 85025; 85610; 85651; 86140; 86160; 86162; 86235; 86255; 86376; 86403; 86480; 86618; 86635; 86666; 86668; 86757; 87015; 87040; 87070; 87075; 87102; 87106; 87116; 87205; 87206; 87305; 87385; 87449; 87637; 87801; 88184; 88185; 88305; 89050; 92611; 93005; 93306; 94640; 94664; 96365; 96372; 96375; 99285; J0456; J0696; J1650; J1885; J2270; J7030; J7050; J7613; J9999

== ENCOUNTER 2025-04-07 12:08 | Outpatient (CLI) | payer MEDICAID, SELFPAY ==
--- NOTE | 2025-04-07 12:16 | XRR_ITS ---
PROCEDURE INFORMATION: Exam: XR Chest Exam date and time: 04/07/2025 12:26 PM Age: 24 years old Clinical indication: Angina pectoris; Prior surgery; Surgery date: 6+ months; Surgery type: Fluid drainage; Monday intermittent tightness and sharp pain in chest, slight SOB since initial pain; Additional info: Chest pain TECHNIQUE: Imaging protocol: Radiologic exam of the chest. Views: 2 views. COMPARISON: CR XR chest 1V portable [id number] 10/31/2024 8:12 AM FINDINGS: Lungs: Unremarkable. No consolidation. Pleural spaces: Unremarkable. No pleural effusion. No pneumothorax. Heart/Mediastinum: Unremarkable. No cardiomegaly. Bones/joints: Unremarkable. XR/XR chest 2V* [id number] IMPRESSION: No acute findings.
== END 2025-04-07 12:09 | disposition home or self-care (01) ==
PROVIDERS: PCP Nurse Practitioner Family; Visit Provider Emergency Medicine
DX: R07.9 Chest pain, unspecified (principal)
CPT/HCPCS: 71046